=== PATIENT | female | born 1965 | race Two or more races ===

== ENCOUNTER 2019-05-06 08:09 | Emergency (ER) | payer BC ==
[2019-05-06] MEDS ORDERED: LORazepam 2 MG/ML SDV ONE (08:14)
[2019-05-06] MEDS ORDERED: Ondansetron 4 MG/2 ML SDV ONE (08:14)
[2019-05-06] MEDS ORDERED: Alum Hydrox/Mag Hydrox/Simeth 30 ML, Lidocaine 2% 15 ML PO ONE ×2 (08:23)
[2019-05-06] MEDS ORDERED: LORazepam 2 MG/ML SDV IVPUSH STA (08:24)
[2019-05-06] MEDS ORDERED: Ondansetron 4 MG/2 ML SDV IVPUSH STA (08:24)
--- NOTE | 2019-05-06 08:30 | EDM.PDOC ---
ED HPI GENERAL MEDICAL PROBLEM - General Chief Complaint: Chest Pain Stated Complaint: [facility] Time Seen by Provider: 05/06/19 08:10 - History of Present Illness INITIAL COMMENTS - FREE TEXT/NARRATIVE: 53-year-old female presents the emergency room with chest pain. The patient is in quite a bit of distress when she gets her very anxious and difficult to get questions answered it took Ativan and Zofran before we could even get a monitor hooked up to her. Now she is answering questions appropriately there is a little bit of a language barrier. Patient has had a prior cardiac history of mitral valve prolapse she does not have a history of a pacemaker as previously reported. She has had thoracotomy for mitral valve repair. Besides this she denies any other medical problems however the patient was feels to have some surgical procedure done here on the of this last month but I cannot find any documentation of this. Patient was drinking beer last night but did not denies drinking in excess. She denies any illicit drugs. - Related Data Allergies Allergy/AdvReac Type Severity Reaction Status Date / Time aspirin Allergy Cannot Verified 05/06/19 08:39 Remember contrast dye. Allergy Swelling Uncoded 05/06/19 10:16 Home Meds: Home Meds Acetaminophen/HYDROcodone [[place] 325-5 MG] 1 - 2 tab PO Q6H PRN #20 tablet 05/05 [Rx] Ondansetron [Zofran ODT] 4 mg PO Q4H PRN #12 tab.dis 05/06/19 [Rx] Potassium Chloride [Klor-Con 10] 10 meq PO Q12H #6 tab.er 05/06/19 [Rx] ED ROS GENERAL - Review of Systems Review Of Systems: See Below Constitutional: Reports: No Symptoms HEENT: Reports: No Symptoms Respiratory: Reports: No Symptoms Cardiovascular: Reports: Chest Pain GI/Abdominal: Reports: Abdominal Pain, Nausea, Vomiting. Denies: Constipation, Diarrhea : Reports: No Symptoms Musculoskeletal: Reports: No Symptoms ED EXAM, GENERAL - Physical Exam Exam: See Below Exam Limited By: No Limitations General Appearance: Anxious, Severe Distress Head: Atraumatic, Normocephalic Neck: Normal Inspection, Supple, Non-Tender, Full Range of Motion. No: Lymphadenopathy (L), Lymphadenopathy (R) Respiratory/Chest: No Respiratory Distress, Lungs Clear, Normal Breath Sounds Cardiovascular: Regular Rate, Rhythm, No Edema, No Murmur GI/Abdominal: Normal Bowel Sounds, Soft, Other (She has significant epigastric discomfort no guarding rigidity or rebound noted) Back Exam: Normal Inspection. No: CVA Tenderness (L), CVA Tenderness (R) Psychiatric: Anxious EKG INTERPRETATION EKG Date: 05/06/19 Rhythm: Other (Sinus dysrhythmia) [place]: LAD-Left [place] Deviation P-Wave: Present QRS: Other (Low voltage throughout) ST-T: Normal QT: Normal Comparison: NA - No Prior EKG EKG Interpretation Comments: Abnormal EKG Course - Vital Signs Last Recorded V/S: Last Vital Signs Temp 36.3 C 05/06/19 08:10 Pulse 60 05/06/19 08:10 Resp 20 05/06/19 08:10 BP 179/97 H 05/06/19 08:10 Pulse Ox 98 05/06/19 08:10 - Orders/Labs/Meds Orders: Active Orders 24 hr Category Date Time Status EKG Documentation Completion [RC] STAT Care 05/06/19 08:17 Active Lactated Ringers [Ringers, Lactated] 1,000 ml Med 05/06/19 09:45 Active IV ASDIRECTED Sodium Chloride 0.9% [Saline Flush] Med 05/06/19 11:10 Active 10 ml FLUSH ONETIME PRN Medication Orders Lactated Ringer's (Ringers, Lactated) 1,000 mls @ 125 mls/hr IV ASDIRECTED GRADY Last Admin: 05/06/19 10:38 Dose: 125 mls/hr Sodium Chloride (Saline Flush) 10 ml FLUSH ONETIME PRN PRN Reason: IV Flush Last Admin: 05/06/19 11:12 Dose: 10 ml Labs: Laboratory Tests 05/06/19 05/06/19 05/06/19 Range/Units 08:28 08:28 08:28 WBC 7.52 (3.98-10.04) K/mm3 RBC 5.17 (3.98-5.22) M/mm3 Hgb 14.6 (11.2-15.7) gm/dl Hct 45.1 H (34.1-44.9) % MCV 87.2 (79.4-94.8) fl MCH 28.2 (25.6-32.2) pg MCHC 32.4 (32.2-35.5) g/dl RDW Std Deviation 47.2 H (36.4-46.3) fL Plt Count 212 (182-369) K/mm3 MPV 13.1 H (9.4-12.3) fl Neut % (Auto) 74.6 H (34.0-71.1) % Lymph % (Auto) 18.8 L (19.3-51.7) % [place] % (Auto) 5.5 (4.7-12.5) % Eos % (Auto) 0.7 (0.7-5.8) Baso % (Auto) 0.3 (0.1-1.2) % Neut # (Auto) 5.62 (1.56-6.13) K/mm3 Lymph # (Auto) 1.41 (1.18-3.74) K/mm3 [place] # (Auto) 0.41 H (0.24-0.36) K/mm3 Eos # (Auto) 0.05 (0.04-0.36) K/mm3 Baso # (Auto) 0.02 (0.01-0.08) K/mm3 PT 45.0 H (9.7-12.0) SECONDS INR 4.50 APTT 36 H (22-31) SECONDS D-Dimer, Quantitative 0.55 H (0.19-0.50) mg/L Sodium 146 H (136-145) mEq/L Potassium 3.3 L (3.5-5.1) mEq/L Chloride 107 (98-107) mEq/L Carbon Dioxide 23 (21-32) mEq/L Anion Gap 19.3 H (5-15) BUN 5 L (7-18) mg/dL Creatinine 0.8 (0.55-1.02) mg/dL Est Cr Clr Drug Dosing 68.82 mL/min Estimated GFR (MDRD) > 60 (>60) mL/min BUN/Creatinine Ratio 6.3 L (14-18) Glucose 122 H (74-106) mg/dL Calcium 9.3 (8.5-10.1) mg/dL Total Bilirubin 0.8 (0.2-1.0) mg/dL AST 40 H (15-37) U/L ALT 36 (14-59) U/L Alkaline Phosphatase 69 (46-116) U/L Troponin I < 0.017 (0.00-0.056) ng/mL Total Protein 7.5 (6.4-8.2) g/dl Albumin 4.2 (3.4-5.0) g/dl Globulin 3.3 gm/dL Albumin/Globulin Ratio 1.3 (1-2) Urine Color (Yellow) Urine Appearance (Clear) Urine pH (5.0-8.0) Ur Specific [place] (1.005-1.030) Urine Protein (Negative) Urine Glucose (UA) (Negative) Urine Ketones (Negative) Urine Occult Blood (Negative) Urine Nitrite (Negative) Urine Bilirubin (Negative) Urine Urobilinogen (0.2-1.0) Ur Leukocyte Esterase (Negative) Urine RBC (0-5) /hpf Urine WBC (0-5) /hpf Ur Squamous Epith Cells (0-5) /hpf Urine Bacteria (FEW) /hpf Urine Mucus (FEW) /hpf Urine Opiates Screen (PZZAXR=486) Ur Buprenorphine Scrn (CUTOFF=10) Ur Oxycodone Screen (GPW7TX=294) Urine Methadone Screen (CFODCO=138) Ur Propoxyphene Screen (ZPJZEE=101) Ur Barbiturates Screen (ZSBSDL=286) Ur Tricyclics Screen (KRAXFL=103) Ur Phencyclidine Scrn (CUTOFF=25) Ur Amphetamine Screen (OBPRLD=539) U Methamphetamines Scrn (UOZKAO=121) U Benzodiazepines Scrn (PQHOUR=165) U Cocaine Metab Screen (BAXCCE=881) U Marijuana (THC) Screen (CUTOFF=50) Ethyl Alcohol 0.00 (0.00) gm% 05/06/19 05/06/19 Range/Units 10:38 10:38 WBC (3.98-10.04) K/mm3 RBC (3.98-5.22) M/mm3 Hgb (11.2-15.7) gm/dl Hct (34.1-44.9) % MCV (79.4-94.8) fl MCH (25.6-32.2) pg MCHC (32.2-35.5) g/dl RDW Std Deviation (36.4-46.3) fL Plt Count (182-369) K/mm3 MPV (9.4-12.3) fl Neut % (Auto) (34.0-71.1) % Lymph % (Auto) (19.3-51.7) % [place] % (Auto) (4.7-12.5) % Eos % (Auto) (0.7-5.8) Baso % (Auto) (0.1-1.2) % Neut # (Auto) (1.56-6.13) K/mm3 Lymph # (Auto) (1.18-3.74) K/mm3 [place] # (Auto) (0.24-0.36) K/mm3 Eos # (Auto) (0.04-0.36) K/mm3 Baso # (Auto) (0.01-0.08) K/mm3 PT (9.7-12.0) SECONDS INR APTT (22-31) SECONDS D-Dimer, Quantitative (0.19-0.50) mg/L Sodium (136-145) mEq/L Potassium (3.5-5.1) mEq/L Chloride (98-107) mEq/L Carbon Dioxide (21-32) mEq/L Anion Gap (5-15) BUN (7-18) mg/dL Creatinine (0.55-1.02) mg/dL Est Cr Clr Drug Dosing mL/min Estimated GFR (MDRD) (>60) mL/min BUN/Creatinine Ratio (14-18) Glucose (74-106) mg/dL Calcium (8.5-10.1) mg/dL Total Bilirubin (0.2-1.0) mg/dL AST (15-37) U/L ALT (14-59) U/L Alkaline Phosphatase (46-116) U/L Troponin I (0.00-0.056) ng/mL Total Protein (6.4-8.2) g/dl Albumin (3.4-5.0) g/dl Globulin gm/dL Albumin/Globulin Ratio (1-2) Urine Color Yellow (Yellow) Urine Appearance Clear (Clear) Urine pH 6.0 (5.0-8.0) Ur Specific [place] 1.025 (1.005-1.030) Urine Protein 1+ H (Negative) Urine Glucose (UA) Negative (Negative) Urine Ketones 1+ H (Negative) Urine Occult Blood Trace-intact H (Negative) Urine Nitrite Negative (Negative) Urine Bilirubin Negative (Negative) Urine Urobilinogen 0.2 (0.2-1.0) Ur Leukocyte Esterase Negative (Negative) Urine RBC 5-10 H (0-5) /hpf Urine WBC 0-5 (0-5) /hpf Ur Squamous Epith Cells 0-5 (0-5) /hpf Urine Bacteria Few (FEW) /hpf Urine Mucus Few (FEW) /hpf Urine Opiates Screen Negative (LDLKRJ=207) Ur Buprenorphine Scrn Negative (CUTOFF=10) Ur Oxycodone Screen Negative (HJW1NL=393) Urine Methadone Screen Negative (DIXDVI=279) Ur Propoxyphene Screen Negative (BDOBWE=077) Ur Barbiturates Screen Negative (XDFAFH=598) Ur Tricyclics Screen Negative (SDULIR=463) Ur Phencyclidine Scrn Negative (CUTOFF=25) Ur Amphetamine Screen Negative (WHEBEO=437) U Methamphetamines Scrn Negative (LNKCME=522) U Benzodiazepines Scrn Presumptive positive H (TNDCAT=696) U Cocaine Metab Screen Negative (AZSNLF=329) U Marijuana (THC) Screen Presumptive positive H (CUTOFF=50) Ethyl Alcohol (0.00) gm% Meds: Medications Generic Name Dose Route Start Last Admin Trade Name Freq PRN Reason Stop Dose Admin Lactated Ringer's 1,000 mls @ 125 mls/hr 05/06/19 09:45 05/06/19 10:38 Ringers, Lactated IV 125 mls/hr ASDIRECTED GRADY Administration Sodium Chloride 10 ml 05/06/19 11:10 05/06/19 11:12 Saline Flush FLUSH 10 ml ONETIME PRN Administration IV Flush Discontinued Medications Generic Name Dose Route Start Last Admin Trade Name Freq PRN Reason Stop Dose Admin Hydrocodone Bitart/Acetaminophen 1 tab 05/06/19 14:34 05/06/19 14:39 [place] 325-5 Mg PO 05/06/19 14:35 1 tab ONETIME STA Administration Al Hydroxide/Mg Hydroxide 30 0 ml 05/06/19 08:23 05/06/19 08:28 ml/ Lidocaine HCl 15 ml PO 05/06/19 08:24 45 ml ONETIME ONE Administration Diphenhydramine HCl 50 mg 05/06/19 09:41 05/06/19 09:57 Benadryl IVPUSH 05/06/19 09:42 50 mg ONETIME ONE Administration Famotidine 40 mg 05/06/19 09:41 05/06/19 10:04 Pepcid IVPUSH 05/06/19 09:42 40 mg ONETIME ONE Administration Fentanyl 100 mcg 05/06/19 09:43 05/06/19 09:55 Sublimaze IVPUSH 05/06/19 09:44 50 mcg ONETIME ONE Administration Hydromorphone HCl 0.5 mg 05/06/19 12:23 05/06/19 12:42 Dilaudid IVPUSH 05/06/19 12:24 0.5 mg ONETIME ONE Administration Lactated Ringer's 500 mls @ 999 mls/hr 05/06/19 09:36 05/06/19 09:54 Ringers, Lactated IV 05/06/19 10:06 999 mls/hr .BOLUS ONE Administration Sodium Chloride 100 mls @ 4 mls/sec 05/06/19 10:56 05/06/19 11:11 Normal Saline IV 05/06/19 10:57 4 mls/sec ONETIME ONE Administration Sodium Chloride 100 mls @ 4 mls/sec 05/06/19 11:10 Normal Saline IV 05/06/19 11:11 ONETIME ONE Iopamidol 100 ml 05/06/19 10:56 05/06/19 11:11 Isovue-370 (76%) IVPUSH 05/06/19 10:57 100 ml ONETIME ONE Administration Iopamidol 100 ml 05/06/19 11:10 Isovue-370 (76%) IVPUSH 05/06/19 11:11 ONETIME ONE Lorazepam Confirm 05/06/19 08:14 05/06/19 08:27 Ativan Administered 05/06/19 08:15 Not Given Dose 2 mg .ROUTE .STK-MED ONE Lorazepam 1 mg 05/06/19 08:24 05/06/19 08:15 Ativan IVPUSH 05/06/19 08:25 1 mg ONETIME STA Administration Methylprednisolone Sodium Succinate 125 mg 05/06/19 09:41 05/06/19 10:07 Solu-Medrol IVPUSH 05/06/19 09:42 125 mg ONETIME ONE Administration Ondansetron HCl Confirm 05/06/19 08:14 05/06/19 08:27 Zofran Administered 05/06/19 08:15 Not Given Dose 4 mg .ROUTE .STK-MED ONE Ondansetron HCl 4 mg 05/06/19 08:24 05/06/19 08:14 Zofran IVPUSH 05/06/19 08:25 4 mg ONETIME STA Administration Ondansetron HCl 4 mg 05/06/19 08:37 05/06/19 08:43 Zofran IVPUSH 05/06/19 08:38 4 mg ONETIME ONE Administration Pantoprazole Sodium 40 mg 05/06/19 09:43 05/06/19 09:58 Protonix Iv IVPUSH 05/06/19 09:44 40 mg ONETIME ONE Administration Sucralfate 1 gm 05/06/19 09:43 05/06/19 10:09 Carafate PO 05/06/19 09:44 Not Given ONETIME ONE - Re-Assessments/Exams Free Text/Narrative Re-Assessment/Exam: 05/06/19 08:28 She presents the emergency room quite a bit of stress and anxious. She will not hold still for monitoring. And we cannot get an EKG. I did discuss this with the patient she calmed down a little bit we gave her some Zofran and Ativan which seems to have helped quite a bit. She has normal bowel sounds and a significant amount of epigastric pain we will try a GI cocktail 05/06/19 09:44 Patient's pain is returning we will give her some fentanyl try some Carafate and Protonix. Patient's d-dimer came back elevated we will need to check a CTA however the patient has had a reaction to IV contrast in the past she had itching and a rash sounds like hives. This was treated with Benadryl in the past. Patient be pretreated with Solu-Medrol Pepcid and Benadryl. I discussed the risks of the procedure with the patient and she agrees to proceed. 05/06/19 14:39 CTA is unremarkable. The patient's daughter is here and is a good data center solutions architect the patient is having right upper quadrant as well as epigastric discomfort. Her white count is not elevated her liver enzymes are not elevated. According to the patient's daughter the patient had 3 large tequila drinks last night and she does smoke. The patient currently is on Coumadin but this is on hold and she is taken the Lovenox as bridge therapy with an upcoming EGD. The patient is taking omeprazole at this time. At this point we will give her some hydrocodone and Zofran have her add Pepcid 20 mg twice daily to her omeprazole. Departure - Departure Time of Disposition: 14:42 Disposition: Admitted As Inpatient 68 Clinical Impression: Upper abdominal pain Prescriptions: Acetaminophen/HYDROcodone [[place] 325-5 MG] 1 - 2 tab PO Q6H PRN #20 tablet PRN Reason: Abdominal Pain Ondansetron [Zofran ODT] 4 mg PO Q4H PRN #12 tab.dis PRN Reason: Nausea/Vomiting Potassium Chloride [Klor-Con 10] 10 meq PO Q12H #6 tab.er Referrals: Mary Vargas MD [Primary Care Provider] - Forms: ED Department Discharge Additional Instructions: Return to the emergency room with any questions problems or worsening symptoms. Take the medications as directed. Start the potassium, or Klor-Con tomorrow. You should be contacted by radiology to schedule a gallbladder ultrasound. Get this done as directed and when you see Dr. Staton tell him this is been ordered Sepsis Event Note - Evaluation Sepsis Screening Result: No Definite Risk - Focused Exam Vital Signs: Vital Signs Temp Pulse Resp BP Pulse Ox 05/06/19 08:10 36.3 C 60 20 179/97 H 98 Date Exam was Performed: 05/06/19 Time Exam was Performed: 14:39 - My Orders Last 24 Hours: My Active Orders 05/06/19 08:17 EKG Documentation Completion [RC] STAT 05/06/19 09:45 Lactated Ringers [Ringers, Lactated] 1,000 ml IV ASDIRECTED 05/06/19 11:10 Sodium Chloride 0.9% [Saline Flush] 10 ml FLUSH ONETIME PRN - Assessment/Plan Last 24 Hours: My Active Orders 05/06/19 08:17 EKG Documentation Completion [RC] STAT 05/06/19 09:45 Lactated Ringers [Ringers, Lactated] 1,000 ml IV ASDIRECTED 05/06/19 11:10 Sodium Chloride 0.9% [Saline Flush] 10 ml FLUSH ONETIME PRN
[2019-05-06] MEDS ORDERED: Ondansetron 4 MG/2 ML SDV IVPUSH ONE (08:37)
--- NOTE | 2019-05-06 08:59 | CR ---
Chest: Portable view of the chest was obtained. Comparison: No previous chest x-rays available. Heart size and mediastinum are normal. Lungs are clear with no acute parenchymal change. Previous sternotomy and prosthetic heart valve is noted. Bony structures are grossly intact. Impression: 1. Nothing acute is appreciated on frontal chest x-ray. Diagnostic code #2 This report was dictated in [place] Standard Time
[2019-05-06] MEDS ORDERED: Lactated Ringers 500 ML IV ONE (09:36)
[2019-05-06] MEDS ORDERED: methylPREDNISolone Sodium Succinate 125 MG/2 ML SDV IVPUSH ONE (09:41)
[2019-05-06] MEDS ORDERED: diphenhydrAMINE 50 MG/ML SDV IVPUSH ONE (09:41)
[2019-05-06] MEDS ORDERED: Famotidine 20 MG/2 ML SDV IVPUSH ONE (09:41)
[2019-05-06] MEDS ORDERED: Pantoprazole 40 MG Vial IVPUSH ONE (09:43)
[2019-05-06] MEDS ORDERED: Sucralfate Suspension 1 GM/10 ML Cup PO ONE (09:43)
[2019-05-06] MEDS ORDERED: fentaNYL 100 MCG/2 ML SDV IVPUSH ONE (09:43)
[2019-05-06] MEDS ORDERED: Lactated Ringers 1,000 ML IV SCH (09:45)
[2019-05-06] MEDS ORDERED: Sodium Chloride 0.9% 100 ML IV ONE ×2 (10:56→11:10)
[2019-05-06] MEDS ORDERED: Iopamidol 755 Mg/ML 100 ML Bottle IVPUSH ONE ×2 (10:56→11:10)
[2019-05-06] MEDS ORDERED: Sodium Chloride 0.9% 10 ML Syringe FLUSH PRN (11:10)
--- NOTE | 2019-05-06 11:47 | CT ---
CT chest Technique: Multiple axial sections through the chest were obtained. Intravenous contrast was utilized. Study has been performed as a pulmonary angiogram protocol. Comparison: Prior chest x-ray performed earlier on the same day (8:20 AM). Findings: Pulmonary arteries are moderately well opacified. No filling defects are seen to indicate pulmonary embolism. No pericardial thickening is noted. Prosthetic mitral valve is present. Small hiatal hernia is present. Surgical clips are noted from prior cholecystectomy. No pericardial thickening is seen. Mild coronary artery calcification is noted. Aorta shows atherosclerotic calcification without aneurysm. Mediastinum shows no adenopathy. No axillary adenopathy is seen. No acute osseous finding is seen. There is mild interstitial change along the lateral left chest wall believed to represent mild fibrosis and minimal areas of atelectasis. Minimal linear scarring and atelectasis is seen within the right lung base. No acute appearing parenchymal change is seen. Impression: 1. No findings pulmonary embolism. 2. Prosthetic mitral valve. 3. Mild interstitial change along the lateral left chest wall most likely representing a combination of minimal atelectasis and fibrosis. Minimal linear atelectasis and fibrosis within the right lung base. 4. Other nonacute findings as noted above. Nothing acute is appreciated. Diagnostic code #2 This report was dictated in [place] Standard Time
[2019-05-06] MEDS ORDERED: HYDROmorphone 0.5 MG/0.5 ML Syringe IVPUSH ONE (12:23)
[2019-05-06] MEDS ORDERED: Acetaminophen/HYDROcodone 325-5 MG Tab PO STA (14:34)
== END 2019-05-06 15:00 | disposition home or self-care (01) ==
LOC: JD.ED 08:09
DX: R10.13 Epigastric pain (principal); Z88.8 Allergy status to other drugs, medicaments and biological substances; Z91.041 Radiographic dye allergy status
CPT/HCPCS: 36415; 71045; 71275; 80053; 80306; 80307; 81001; 84484; 85025; 85379; 85610; 85730; 93005; 96361; 96374; 96375; 99285; A9270; C9113; J1170; J1200; J2060; J2405; J2930; J3010; J3490; J7050; J7120; Q9967; 93010; 99283

== ENCOUNTER 2019-06-02 11:33 | Emergency (ER) | payer BC ==
[2019-06-02] MEDS ORDERED: Alum Hydrox/Mag Hydrox/Simeth 30 ML, Lidocaine 2% 15 ML PO ONE ×2 (12:43)
[2019-06-02] MEDS ORDERED: Acetaminophen 325 MG Tab PO ONE (12:46)
--- NOTE | 2019-06-02 12:51 | EDM.PDOC ---
ED HPI GENERAL MEDICAL PROBLEM - General Chief Complaint: Abdominal Pain Stated Complaint: UPPER ABD PAIN Time Seen by Provider: 06/02/19 11:51 Source of Information: Reports: Patient History Limitations: Reports: No Limitations - History of Present Illness INITIAL COMMENTS - FREE TEXT/NARRATIVE: Patient is a 53-year-old female brought in by her with complaints of upper abdominal pain, left-sided chest wall pain, and cough. Patient has had the abdominal pain for approximately the last 6 months. She was seen at [facility] in [place] 1 month ago and had an upper endoscopy done. She was told at that time that her hiatal hernia repair that was done 9 years ago had failed and that she also has esophageal stricture. states that a balloon dilation was done of the esophageal stricture stricture, however since that time her symptoms seem to be getting worse. She is unable to eat without pain she does occasionally vomit. She has been taking Carafate and omeprazole but continues to have symptoms. Patient does not have a follow-up appointment or any arrangements to have her hiatal hernia repaired. From the patient and her 's report, there was an issue during her stay at [facility] where the patient went out to smoke and for my understanding she left AMA after that because she did not feel like anything was being done. She did fall on her right side approximately 1 week ago. Since that time she has had pain on her left chest wall which she feels is from the impact of the fall on the right side. It is tender to palpation and painful when she wears a bra. She is also had a productive cough for about a week. Has not had any fever, chills, or nasal congestion. Upper Abdomen Pain Score (Numeric/FACES): 9 - Related Data Allergies Allergy/AdvReac Type Severity Reaction Status Date / Time aspirin Allergy Cannot Verified 06/02/19 12:15 Remember contrast dye. 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 Denies: Fever, Chills HEENT: Reports: No Symptoms ED EXAM, GI/ABD - Physical Exam Exam: See Below Exam Limited By: No Limitations General Appearance: Alert, WD/WN, Mild Distress Throat/Mouth: Normal Inspection, Normal Lips, Normal Teeth, Normal Gums, Normal Oropharynx, Normal Voice, No Airway Compromise Respiratory/Chest: No Respiratory Distress, Lungs Clear, Normal Breath Sounds, No Accessory Muscle Use, Other (tenderness throughout the left anterior and posterior chest wall. No ecchymosis or lesions noted.) Cardiovascular: Normal Peripheral Pulses, Regular Rate, Rhythm, No Edema, No Gallop, No JVD, No Murmur, No Rub GI/Abdominal Exam: Normal Bowel Sounds, Soft, No Organomegaly, No Distention, No Abnormal Bruit, No Mass, Pelvis Stable, Tender (epigastric) Neurological: Alert, Oriented, CN II-XII Intact, Normal Cognition, Normal Gait, Normal Reflexes, No Motor/Sensory Deficits Psychiatric: Normal Affect, Normal Mood Skin Exam: Warm, Dry, Intact, Normal Color, No Rash Course - Vital Signs Last Recorded V/S: Last Vital Signs Temp 98.2 F 06/02/19 12:03 Pulse 70 06/02/19 14:00 Resp 13 06/02/19 12:03 BP 160/86 H 06/02/19 14:00 Pulse Ox 100 06/02/19 14:00 - Orders/Labs/Meds Meds: Medications Discontinued Medications Generic Name Dose Route Start Last Admin Trade Name Daltonq PRN Reason Stop Dose Admin Acetaminophen 975 mg 06/02/19 12:46 06/02/19 12:49 Tylenol PO 06/02/19 12:47 975 mg NOW ONE Administration Al Hydroxide/Mg Hydroxide 30 0 ml 06/02/19 12:43 06/02/19 12:49 ml/ Lidocaine HCl 15 ml PO 06/02/19 12:44 45 ml ONETIME ONE Administration - Re-Assessments/Exams Free Text/Narrative Re-Assessment/Exam: 06/02/19 13:21 Chest x-ray was negative for any infiltrates or rib fractures. I called and spoke with Dr. Marin, gastroenterology, at [facility]. He reviewed the patient's chart stated that her esophagus was dilated to 18 mm. He feels that she is likely having esophageal spasms but that further testing should be scheduled in [place] on an outpatient patient basis. They entered a referral so that the patient can call Tuesday morning to get an appointment set up. He stated that the only thing that will actually resolve her pain is further interventions. He did however recommend that we start on amitriptyline 10 mg at bedtime for functional GI disorder. I send her with an albuterol inhaler and Fulda for the chest wall pain. She and her are in agreement with the plan and will call Tuesday to schedule an appointment with GI in [place]. Discharge instructions as documented. Departure - Departure Time of Disposition: 13:32 Disposition: Home, Self-Care 01 Condition: Fair Clinical Impression: Upper abdominal pain, Viral respiratory illness - Discharge Information *PRESCRIPTION DRUG MONITORING PROGRAM REVIEWED*: No *COPY OF PRESCRIPTION DRUG MONITORING REPORT IN PATIENT RONALD: No Prescriptions: Acetaminophen/HYDROcodone [F[place]da 325-5 MG] 1 tab PO Q4H PRN #10 tablet PRN Reason: Pain Albuterol [Ventolin HFA] 2 puff .XX Q4H PRN #1 inhaler PRN Reason: Cough Amitriptyline [Elavil] 10 mg PO BEDTIME #30 tab Instructions: Viral Respiratory Infection, [id number], Abdominal Pain, Adult , [id number] Referrals: Mary Vargas MD [Primary Care Provider] - Forms: ED Department Discharge Additional Instructions: You were seen in the emergency department today for chronic upper abdominal pain , cough, and left-sided chest wall pain. A chest x-ray was done in the ER which did not show any rib fractures or pneumonia. I did call and speak with the nuclear equipment design engineer at [facility] in [place]. He recommended that we start you on amitriptyline at bedtime. He also recommended that you call Tuesday morning to schedule an appointment for further evaluation to be done with regards to your upper abdominal pain. A prescription for amitriptyline, albuterol inhaler, and Fulda for pain has been sent to [facility]. Pick these medications up and take them as prescribed. Recommend that you avoid any spicy or acidic foods as this will likely make your pain worse. You experience any worsening symptoms, please do not hesitate to return to the emergency department. Sepsis Event Note - Evaluation Sepsis Screening Result: No Definite Risk - Focused Exam Vital Signs: Vital Signs Temp Pulse Resp BP Pulse Ox 06/02/19 14:00 70 160/86 H 100 06/02/19 12:03 98.2 F 70 13 125/94 H 100 Date Exam was Performed: 06/02/19 Time Exam was Performed: 21:26
--- NOTE | 2019-06-02 13:18 | CR ---
Chest: PA and lateral views of the chest were obtained. Comparison: Prior chest x-ray of 05/06/[address] also performed on 05/06/19. Heart size and mediastinum are normal. 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 Lungs show no acute parenchymal change. Bony structures appear without acute finding. Surgical clips are seen within the upper abdomen from prior cholecystectomy. Impression: 1. Findings as noted above. Nothing acute is appreciated. Diagnostic code #2 Study was dictated in MDT
== END 2019-06-02 14:01 | disposition home or self-care (01) ==
LOC: JD.ED 11:33
DX: B34.9 Viral infection, unspecified (principal); R10.10 Upper abdominal pain, unspecified; E78.00 Pure hypercholesterolemia, unspecified; I10 Essential (primary) hypertension; F17.210 Nicotine dependence, cigarettes, uncomplicated; Z88.6 Allergy status to analgesic agent; Z91.041 Radiographic dye allergy status; Z79.01 Long term (current) use of anticoagulants
CPT/HCPCS: 71046; 99284; A9270; 99283

== ENCOUNTER 2020-10-20 09:53 | Emergency (ER) | payer BC ==
[2020-10-20] MEDS ORDERED: Ondansetron 4 MG/2 ML SDV IVPUSH ONE (10:21)
[2020-10-20] MEDS ORDERED: Sodium Chloride 0.9% 10 ML Syringe FLUSH PRN (10:21)
[2020-10-20] MEDS ORDERED: HYDROmorphone 1 MG/ML Syringe IVPUSH ONE ×2 (10:23→12:22)
[2020-10-20] MEDS ORDERED: Sodium Chloride 0.9% 1,000 ML IV SCH (10:30)
--- NOTE | 2020-10-20 11:48 | EDM.PDOC ---
ED HPI GENERAL MEDICAL PROBLEM - General Chief Complaint: Skin Complaint Stated Complaint: RASHES OVER BODY COVID EXPOSED Time Seen by Provider: 10/20/20 10:05 Source of Information: Reports: Patient History Limitations: Reports: No Limitations - History of Present Illness INITIAL COMMENTS - FREE TEXT/NARRATIVE: The patient presents with right foot pain and rash, fever, chills, body aches, nausea, vomiting and slight cough. She has a large red spot to the bottom of her right foot. She does not remember stepping on anything or hurting her foot. Her is currently hospitalized for COVID 19. She has a history of mechanical heart valve replacement a few years ago. She is on coumadin. She is worried she may have COVID. Onset: Gradual Duration: Day(s): Location: Reports: Lower Extremity, Right (foot) Quality: Reports: Sharp Severity: Severe Improves with: Reports: None Worsens with: Reports: None Associated Symptoms: Reports: Cough, Fever/Chills, Nausea/Vomiting, Shortness of Breath. Denies: Chest Pain Right Foot Pain Score (Numeric/FACES): 10 - Related Data Allergies Allergy/AdvReac Type Severity Reaction Status Date / Time aspirin Allergy Severe Rash Verified 10/20/20 10:06 ibuprofen Allergy Severe Rash Verified 10/20/20 10:06 contrast dye. 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: Hematologic History: Reports: Anticoagulation Therapy - Past Surgical History Cardiovascular Surgical History: Reports: Valve Replacement Other Cardiovascular Surgeries/Procedures: mitral valve GI Surgical History: Reports: Appendectomy, Cholecystectomy, EGD Social & Family History - Tobacco Use Tobacco Use Status *Q: Current Every Day Tobacco User Years of Tobacco use: 25 Packs/Tins Daily: 0.2 - Caffeine Use Caffeine Use: Reports: Coffee - Recreational Drug Use Recreational Drug Use: No ED ROS GENERAL - Review of Systems Review Of Systems: See Below Constitutional: Reports: Fever, Chills, Malaise, Weakness, Fatigue HEENT: Reports: No Symptoms Respiratory: Reports: Shortness of Breath, Cough Cardiovascular: Reports: No Symptoms Endocrine: Reports: No Symptoms GI/Abdominal: Reports: Nausea, Vomiting. Denies: Abdominal Pain Musculoskeletal: Reports: Other (right foot pain) ED EXAM, SKIN/RASH Exam: See Below Exam Limited By: No Limitations General Appearance: Alert, No Apparent Distress Ears: Normal External Exam Nose: Normal Inspection Head: Atraumatic, Normocephalic Neck: Normal Inspection Respiratory/Chest: No Respiratory Distress, Lungs Clear, Normal Breath Sounds Cardiovascular: Regular Rate, Rhythm, No Edema, No Murmur GI/Abdominal: Soft, Non-Tender, No Organomegaly, No Mass Back Exam: Normal Inspection Extremities: Other (Erythema and pain upon palpation to the right foot on the mid sole of the foot. Some mild areas of erythema to the left foot) Neurological: Alert, Oriented, No Motor/Sensory Deficits Course - Vital Signs Last Recorded V/S: Last Vital Signs Temp 97.9 F 10/20/20 10:02 Pulse 67 10/20/20 10:02 Resp 16 10/20/20 10:02 BP 152/89 H 10/20/20 10:02 Pulse Ox 97 10/20/20 10:02 - Orders/Labs/Meds Orders: Active Orders 24 hr Category Date Time Status Cardiac Monitoring [RC] . DIRECTED Care 10/20/20 10:21 Active Peripheral IV Care [RC] . DIRECTED Care 10/20/20 10:21 Active Vital Signs [RC] Q15M Care 10/20/20 13:12 Active BLOOD CULTURE [MREF] Stat Lab 10/20/20 10:49 Received BLOOD CULTURE [MREF] Stat Lab 10/20/20 10:56 Received EPINEPHrine [Adrenalin] Med 10/20/20 13:12 Active 0.3 mg IM ONETIME PRN Famotidine [Pepcid] Med 10/20/20 13:12 Active 20 mg IVPUSH ONETIME PRN Sodium Chloride 0.9% [Normal Saline] 1,000 ml Med 10/20/20 10:30 Active IV .BOLUS Sodium Chloride 0.9% [Saline Flush] Med 10/20/20 10:21 Active 10 ml FLUSH ASDIRECTED PRN Sodium Chloride 0.9% [Saline Flush] Med 10/20/20 13:15 Active 30 ml FLUSH ASDIRECTED diphenhydrAMINE [Benadryl] Med 10/20/20 13:12 Active 50 mg IVPUSH ONETIME PRN methylPREDNISolone Sod Succ [Solu-MEDROL] Med 10/20/20 13:12 Active 125 mg IVPUSH ONETIME PRN ED Antiemetic Medication Reflex [OM.PC] Stat Ot 10/20/20 10:21 Ordered Peripheral IV Insertion Adult [OM.PC] Stat Ot 10/20/20 10:21 Ordered Medication Orders Diphenhydramine HCl (Diphenhydramine 50 Mg/Ml Sdv) 50 mg IVPUSH ONETIME PRN PRN Reason: hypersensitivity reaction Epinephrine HCl (Epinephrine 1 Mg/Ml Sdv) 0.3 mg IM ONETIME PRN PRN Reason: hypersensitivity reaction Famotidine (Famotidine 20 Mg/2 Ml Sdv) 20 mg IVPUSH ONETIME PRN PRN Reason: hypersensitivity reaction Sodium Chloride (Normal Saline) 1,000 mls @ 1,000 mls/hr IV .BOLUS [facility] Last Admin: 10/20/20 11:28 Dose: 1,000 mls/hr Documented by: JEMMA Methylprednisolone Sodium Succinate (Methylprednisolone Sodium Succinate 125 Mg/2 Ml Sdv) 125 mg IVPUSH ONETIME PRN PRN Reason: hypersensitivity reaction Sodium Chloride (Sodium Chloride 0.9% 10 Ml Syringe) 10 ml FLUSH ASDIRECTED PRN PRN Reason: Keep Vein Open Last Admin: 10/20/20 11:32 Dose: 10 ml Documented by: JEMMA Sodium Chloride (Sodium Chloride 0.9% 10 Ml Syringe) 30 ml FLUSH ASDIRECTED [facility] Labs: Laboratory Tests 10/20/20 10/20/20 10/20/20 Range/Units 10:49 10:49 10:49 WBC 5.43 (3.98-10.04) K/mm3 RBC 4.97 (3.98-5.22) M/mm3 Hgb 14.4 (11.2-15.7) gm/dl Hct 43.9 (34.1-44.9) % MCV 88.3 (79.4-94.8) fl MCH 29.0 (25.6-32.2) pg MCHC 32.8 (32.2-35.5) g/dl RDW Std Deviation 45.8 (36.4-46.3) fL Plt Count 238 (182-369) K/mm3 MPV 11.8 (9.4-12.3) fl Neut % (Auto) 58.1 (34.0-71.1) % Lymph % (Auto) 31.5 (19.3-51.7) % Miner % (Auto) 8.3 (4.7-12.5) % Eos % (Auto) 1.1 (0.7-5.8) Baso % (Auto) 0.6 (0.1-1.2) % Neut # (Auto) 3.16 (1.56-6.13) K/mm3 Lymph # (Auto) 1.71 (1.18-3.74) K/mm3 Miner # (Auto) 0.45 H (0.24-0.36) K/mm3 Eos # (Auto) 0.06 (0.04-0.36) K/mm3 Baso # (Auto) 0.03 (0.01-0.08) K/mm3 PT 46.5 H (9.7-12.0) SECONDS INR 4.48 APTT 58.4 H (21.7-31.4) SECONDS Sodium 143 (136-145) mEq/L Potassium 4.2 (3.5-5.1) mEq/L Chloride 108 H (98-107) mEq/L Carbon Dioxide 25 (21-32) mEq/L Anion Gap 14.2 (5-15) BUN 11 (7-18) mg/dL Creatinine 0.6 (0.55-1.02) mg/dL Est Cr Clr Drug Dosing 82.76 mL/min Estimated GFR (MDRD) > 60 (>60) mL/min BUN/Creatinine Ratio 18.3 H (14-18) Glucose 92 (70-99) mg/dL Lactic Acid (0.4-2.0) mmol/L Calcium 8.4 L (8.5-10.1) mg/dL Total Bilirubin 0.5 (0.2-1.0) mg/dL AST 21 (15-37) U/L ALT 30 (14-59) U/L Alkaline Phosphatase 80 (46-116) U/L C-Reactive Protein 2.3 H* (<1.0) mg/dL Total Protein 7.0 (6.4-8.2) g/dl Albumin 3.6 (3.4-5.0) g/dl Globulin 3.4 gm/dL Albumin/Globulin Ratio 1.1 (1-2) SARS-CoV-2 RNA (TANGELA) (NEGATIVE) 10/20/20 10/20/20 Range/Units 10:49 11:46 WBC (3.98-10.04) K/mm3 RBC (3.98-5.22) M/mm3 Hgb (11.2-15.7) gm/dl Hct (34.1-44.9) % MCV (79.4-94.8) fl MCH (25.6-32.2) pg MCHC (32.2-35.5) g/dl RDW Std Deviation (36.4-46.3) fL Plt Count (182-369) K/mm3 MPV (9.4-12.3) fl Neut % (Auto) (34.0-71.1) % Lymph % (Auto) (19.3-51.7) % Miner % (Auto) (4.7-12.5) % Eos % (Auto) (0.7-5.8) Baso % (Auto) (0.1-1.2) % Neut # (Auto) (1.56-6.13) K/mm3 Lymph # (Auto) (1.18-3.74) K/mm3 Miner # (Auto) (0.24-0.36) K/mm3 Eos # (Auto) (0.04-0.36) K/mm3 Baso # (Auto) (0.01-0.08) K/mm3 PT (9.7-12.0) SECONDS INR APTT (21.7-31.4) SECONDS Sodium (136-145) mEq/L Potassium (3.5-5.1) mEq/L Chloride (98-107) mEq/L Carbon Dioxide (21-32) mEq/L Anion Gap (5-15) BUN (7-18) mg/dL Creatinine (0.55-1.02) mg/dL Est Cr Clr Drug Dosing mL/min Estimated GFR (MDRD) (>60) mL/min BUN/Creatinine Ratio (14-18) Glucose (70-99) mg/dL Lactic Acid 0.8 (0.4-2.0) mmol/L Calcium (8.5-10.1) mg/dL Total Bilirubin (0.2-1.0) mg/dL AST (15-37) U/L ALT (14-59) U/L Alkaline Phosphatase (46-116) U/L C-Reactive Protein (<1.0) mg/dL Total Protein (6.4-8.2) g/dl Albumin (3.4-5.0) g/dl Globulin gm/dL Albumin/Globulin Ratio (1-2) SARS-CoV-2 RNA (TANGELA) Positive H (NEGATIVE) Meds: Medications Generic Name Dose Route Start Last Admin Trade Name Freq PRN Reason Stop Dose Admin Diphenhydramine HCl 50 mg 10/20/20 13:12 Diphenhydramine 50 Mg/Ml Sdv IVPUSH ONETIME PRN hypersensitivity reaction Epinephrine HCl 0.3 mg 10/20/20 13:12 Epinephrine 1 Mg/Ml Sdv IM ONETIME PRN hypersensitivity reaction Famotidine 20 mg 10/20/20 13:12 Famotidine 20 Mg/2 Ml Sdv IVPUSH ONETIME PRN hypersensitivity reaction Sodium Chloride 1,000 mls @ 1,000 mls/hr 10/20/20 10:30 10/20/20 11:28 Normal Saline IV 1,000 mls/hr .BOLUS GRADY Administration Methylprednisolone Sodium Succinate 125 mg 10/20/20 13:12 Methylprednisolone Sodium Succinate 125 Mg/2 Ml Sdv IVPUSH ONETIME PRN hypersensitivity reaction Sodium Chloride 10 ml 10/20/20 10:21 10/20/20 11:32 Sodium Chloride 0.9% 10 Ml Syringe FLUSH 10 ml ASDIRECTED PRN Administration Keep Vein Open Sodium Chloride 30 ml 10/20/20 13:15 Sodium Chloride 0.9% 10 Ml Syringe FLUSH ASDIRECTED GRADY Discontinued Medications Generic Name Dose Route Start Last Admin Trade Name Freq PRN Reason Stop Dose Admin Hydromorphone HCl 1 mg 10/20/20 10:23 10/20/20 11:33 Hydromorphone 1 Mg/Ml Syringe IVPUSH 10/20/20 10:24 1 mg ONETIME ONE Administration Hydromorphone HCl 1 mg 10/20/20 12:22 10/20/20 12:30 Hydromorphone 1 Mg/Ml Syringe IVPUSH 10/20/20 12:23 1 mg ONETIME ONE Administration CASIRIVIMAB/IMDEVIMAB 10 ml/ 110 mls @ 220 mls/hr 10/20/20 13:12 10/20/20 14:03 Sodium Chloride IV 10/20/20 13:41 220 mls/hr ONETIME ONE Administration Metoclopramide HCl 10 mg 10/20/20 13:19 10/20/20 13:56 Metoclopramide 10 Mg/2 Ml Sdv IVPUSH 10/20/20 13:20 10 mg ONETIME ONE Administration Ondansetron HCl 4 mg 10/20/20 10:21 10/20/20 11:33 Ondansetron 4 Mg/2 Ml Sdv IVPUSH 10/20/20 10:22 4 mg ONETIME ONE Administration - Re-Assessments/Exams Free Text/Narrative Re-Assessment/Exam: 10/20/20 11:49 I ordered an IV NS 1L bolus, zofran 4mg IV, labs, CXR and COVID 19 test. Her CXR looks good. Her CBC is negative. Her INR was elevated at 4.48. Her CMP looks good. Her CRP is elevated at 2.3. 10/20/20 14:13 She is COVID 19 positive. I have ordered the REGEN-COV. She has a mechanical heart valve. I feel she meets criteria for that. 10/20/20 14:16 I will discharge her home. She does have COVID foot. Departure - Departure Time of Disposition: 14:20 Disposition: Home, Self-Care 01 Condition: Good Clinical Impression: COVID-19, Rash associated with COVID-19 - Discharge Information *PRESCRIPTION DRUG MONITORING PROGRAM REVIEWED*: Not Applicable *COPY OF PRESCRIPTION DRUG MONITORING REPORT IN PATIENT RONALD: Not Applicable Prescriptions: dexAMETHasone [Dexamethasone] 6 mg PO DAILY #9 tab Ondansetron [Zofran ODT] 4 mg PO Q6H PRN #20 tab.dis PRN Reason: Nausea\vomiting Referrals: Mary Vargas ALARM FIELD TECHNICIAN [Primary Care Provider] - 2 Days Forms: ED Department Discharge Additional Instructions: Take the dexamethasone 1 1/2 pills daily for 5 days. Drink plenty of fluids. Take the zofran every 6 hours as needed for nausea and vomiting. Have your INR checked in 2 days. The dexamethasone cane affect the coumadin you are on. Please return if you are worse. Sepsis Event Note (ED) - Evaluation Sepsis Screening Result: No Definite Risk - Focused Exam Vital Signs: Vital Signs Temp Pulse Resp BP Pulse Ox 10/20/20 10:02 97.9 F 67 16 152/89 H 97 - My Orders Last 24 Hours: My Active Orders 10/20/20 10:21 Cardiac Monitoring [RC] . DIRECTED Peripheral IV Care [RC] . DIRECTED Sodium Chloride 0.9% [Saline Flush] 10 ml FLUSH ASDIRECTED PRN ED Antiemetic Medication Reflex [OM.PC] Stat Peripheral IV Insertion Adult [OM.PC] Stat 10/20/20 10:30 Sodium Chloride 0.9% [Normal Saline] 1,000 ml IV .BOLUS 10/20/20 10:49 BLOOD CULTURE [MREF] Stat 10/20/20 10:56 BLOOD CULTURE [MREF] Stat 10/20/20 13:12 Vital Signs [RC] Q15M EPINEPHrine [Adrenalin] 0.3 mg IM ONETIME PRN Famotidine [Pepcid] 20 mg IVPUSH ONETIME PRN diphenhydrAMINE [Benadryl] 50 mg IVPUSH ONETIME PRN methylPREDNISolone Sod Succ [Solu-MEDROL] 125 mg IVPUSH ONETIME PRN 10/20/20 13:15 Sodium Chloride 0.9% [Saline Flush] 30 ml FLUSH ASDIRECTED - Assessment/Plan Last 24 Hours: My Active Orders 10/20/20 10:21 Cardiac Monitoring [RC] . DIRECTED Peripheral IV Care [RC] . DIRECTED Sodium Chloride 0.9% [Saline Flush] 10 ml FLUSH ASDIRECTED PRN ED Antiemetic Medication Reflex [OM.PC] Stat Peripheral IV Insertion Adult [OM.PC] Stat 10/20/20 10:30 Sodium Chloride 0.9% [Normal Saline] 1,000 ml IV .BOLUS 10/20/20 10:49 BLOOD CULTURE [MREF] Stat 10/20/20 10:56 BLOOD CULTURE [MREF] Stat 10/20/20 13:12 Vital Signs [RC] Q15M EPINEPHrine [Adrenalin] 0.3 mg IM ONETIME PRN Famotidine [Pepcid] 20 mg IVPUSH ONETIME PRN diphenhydrAMINE [Benadryl] 50 mg IVPUSH ONETIME PRN methylPREDNISolone Sod Succ [Solu-MEDROL] 125 mg IVPUSH ONETIME PRN 10/20/20 13:15 Sodium Chloride 0.9% [Saline Flush] 30 ml FLUSH ASDIRECTED
[2020-10-20] MEDS ORDERED: diphenhydrAMINE 50 MG/ML SDV IVPUSH PRN (13:12)
[2020-10-20] MEDS ORDERED: Famotidine 20 MG/2 ML SDV IVPUSH PRN (13:12)
[2020-10-20] MEDS ORDERED: methylPREDNISolone Sodium Succinate 125 MG/2 ML SDV IVPUSH PRN (13:12)
[2020-10-20] MEDS ORDERED: EPINEPHrine 1 MG/ML SDV IM PRN (13:12)
[2020-10-20] MEDS ORDERED: Sodium Chloride 0.9% 10 ML Syringe FLUSH SCH (13:15)
--- NOTE | 2020-10-20 13:55 | CR ---
Chest: Portable view of the chest was obtained. Comparison: Prior chest x-ray of 06/02/19. Heart size and mediastinum are normal. 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 Lungs show slight tenting of the lateral left hemidiaphragm which is incidental. No acute parenchymal change is seen. Bony structures show nothing acute. Impression: 1. Stable findings as noted above. 2. Nothing acute is appreciated on portable chest x-ray. Diagnostic code #2
[2020-10-20] MEDS: Metoclopramide 10 MG/2 ML SDV IVPUSH ONE (13:56)
--- NOTE | 2020-10-20 13:56 | CR ---
Right foot: 4 views of the right foot were obtained. Comparison: No prior foot study is available. Plantar spur is seen. No acute fracture, dislocation or other bony abnormality is appreciated. Impression: 1. Plantar spur. 2. No acute abnormality is seen on right foot study. Diagnostic code #2
== END 2020-10-20 15:15 | disposition home or self-care (01) ==
LOC: JD.ED 09:53
DX: U07.1 COVID-19 (principal); R21 Rash and other nonspecific skin eruption; E78.00 Pure hypercholesterolemia, unspecified; I10 Essential (primary) hypertension; Z79.01 Long term (current) use of anticoagulants; Z79.899 Other long term (current) drug therapy; Z88.8 Allergy status to other drugs, medicaments and biological substances; Z91.041 Radiographic dye allergy status; Z91.013 Allergy to seafood; Z72.0 Tobacco use; Z20.822 Contact with and (suspected) exposure to COVID-19
CPT/HCPCS: 36415; 71045; 73630; 80053; 83605; 85025; 85610; 85730; 86140; 87040; 87635; 96374; 96375; 96376; 99283; J1170; J2405; J2765; J7030; M0243; Q0243; U0002

== ENCOUNTER 2020-12-02 15:46 | Emergency (ER) | payer BC ==
[2020-12-02] MEDS ORDERED: HYDROmorphone 1 MG/ML Syringe IVPUSH ONE (16:37)
[2020-12-02] MEDS ORDERED: Ondansetron 4 MG/2 ML SDV IVPUSH ONE (16:38)
--- NOTE | 2020-12-02 17:48 | EDM.PDOC ---
ED HPI GENERAL MEDICAL PROBLEM - General Chief Complaint: Respiratory Problem Stated Complaint: COUGH/PREVIOUSLY HAD COVID ONE MONTH AGO Time Seen by Provider: 12/02/20 16:12 Source of Information: Reports: Patient, RN Notes Reviewed History Limitations: Reports: No Limitations - History of Present Illness INITIAL COMMENTS - FREE TEXT/NARRATIVE: Patient is a 54-year-old female presenting to the emergency department with complaints of cough, shortness of breath, and right-sided chest pain. Reports she had Covid 1 month ago and the cough has persisted since that time. Over the last 4 days, she is been having increasing pain in her chest when she coughs or takes a deep breath. Reports that she was diagnosed with Covid pneumonia during her Covid illness. Reports her cough and shortness of breath improved briefly and then returned. States that she feels like she has been warm but denies any documented fever. She has had no vomiting or diarrhea. Right Chest Pain Score (Numeric/FACES): 6 - Related Data Allergies Allergy/AdvReac Type Severity Reaction Status Date / Time aspirin Allergy Intermediate Rash Verified 12/03/20 12:32 Fish Containing Products Allergy Intermediate Rash Verified 12/03/20 12:32 ibuprofen Allergy Intermediate Rash Verified 12/03/20 12:32 Iodinated Contrast Media Allergy Intermediate Rash Verified 12/03/20 12:32 Home Meds: Home Meds Warfarin [Coumadin] 5 mg PO MOWEFR 06/02/19 [History] Warfarin [Coumadin] 7.5 mg PO SUTUTHSA 06/02/19 [History] Omeprazole 20 mg PO DAILY 10/20/20 [History] Ondansetron [Zofran ODT] 4 mg PO Q6H PRN #20 tab.dis 10/20/20 [Rx] dexAMETHasone [Dexamethasone] 6 mg PO DAILY #9 tab 10/20/20 [Rx] Albuterol Sulfate [Albuterol Sulfate Hfa] 2 puff INH Q4H PRN #1 hfa.aer.ad 12/02/20 [Rx] Codeine/Promethazine [Phenergan with Codeine] 5 ml PO Q4HR PRN #100 ml 12/02/20 [Rx] Past Medical History Cardiovascular History: Reports: High Cholesterol, Hypertension Gastrointestinal History: Reports: 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: Hematologic History: Reports: Anticoagulation Therapy - Infectious Disease History Infectious Disease History: Reports: Novel Coronavirus - Past Surgical History Cardiovascular Surgical History: Reports: Valve Replacement Other Cardiovascular Surgeries/Procedures: mitral valve GI Surgical History: Reports: Appendectomy, Cholecystectomy, EGD Social & Family History - Tobacco Use Tobacco Use Status *Q: Current Every Day Tobacco User Years of Tobacco use: 32 Packs/Tins Daily: 0.3 - Caffeine Use Caffeine Use: Reports: Coffee - Recreational Drug Use Recreational Drug Use: No ED ROS GENERAL - Review of Systems Review Of Systems: See Below Constitutional: Reports: No Symptoms HEENT: Reports: No Symptoms Respiratory: Reports: Shortness of Breath, Pleuritic Chest Pain, Cough Cardiovascular: Reports: No Symptoms. Denies: Lightheadedness, Palpitations, Sy ncope Endocrine: Reports: No Symptoms GI/Abdominal: Reports: No Symptoms : Reports: No Symptoms Musculoskeletal: Reports: No Symptoms Skin: Reports: No Symptoms Neurological: Reports: No Symptoms Psychiatric: Reports: No Symptoms Hematologic/Lymphatic: Reports: No Symptoms Immunologic: Reports: No Symptoms ED EXAM, GENERAL - Physical Exam Exam: See Below Exam Limited By: No Limitations General Appearance: Alert, Mild Distress Respiratory/Chest: No Respiratory Distress, Lungs Clear, Normal Breath Sounds, No Accessory Muscle Use, Other (Tenderness to palpation throughout the anterior and posterior chest wall.) Cardiovascular: Normal Peripheral Pulses, Regular Rate, Rhythm, No Edema, No Gallop, No JVD, No Murmur, No Rub Neurological: Alert, Oriented, CN II-XII Intact, Normal Cognition, Normal Gait, Normal Reflexes, No Motor/Sensory Deficits Psychiatric: Anxious Skin Exam: Warm, Dry, Intact, Normal Color, No Rash #1 Interpretation EKG Date: 12/02/20 Time: 16:13 Rhythm: NSR Rate (Beats/Min): 73 [place]: LAD-Left [place] Deviation P-Wave: Present QRS: Normal ST-T: Normal QT: Normal Course - Vital Signs Last Recorded V/S: Last Vital Signs Temp 98.1 F 12/02/20 15:58 Pulse 94 12/02/20 17:55 Resp 16 12/02/20 17:55 BP 156/91 H 12/02/20 17:55 Pulse Ox 94 L 12/02/20 17:55 - Orders/Labs/Meds Labs: Laboratory Tests 09/28/21 09/28/21 09/28/21 Range/Units 16:48 16:48 16:48 WBC 7.10 (3.98-10.04) K/mm3 RBC 5.12 (3.98-5.22) M/mm3 Hgb 14.3 (11.2-15.7) gm/dl Hct 43.2 (34.1-44.9) % MCV 84.4 D (79.4-94.8) fl MCH 27.9 (25.6-32.2) pg MCHC 33.1 (32.2-35.5) g/dl RDW Std Deviation 43.0 (36.4-46.3) fL Plt Count 203 (182-369) K/mm3 MPV 12.9 H (9.4-12.3) fl Neut % (Auto) 67.3 (34.0-71.1) % Lymph % (Auto) 22.3 (19.3-51.7) % Porter % (Auto) 7.2 (4.7-12.5) % Eos % (Auto) 2.7 (0.7-5.8) Baso % (Auto) 0.4 (0.1-1.2) % Neut # (Auto) 4.78 (1.56-6.13) K/mm3 Lymph # (Auto) 1.58 (1.18-3.74) K/mm3 Porter # (Auto) 0.51 H (0.24-0.36) K/mm3 Eos # (Auto) 0.19 (0.04-0.36) K/mm3 Baso # (Auto) 0.03 (0.01-0.08) K/mm3 D-Dimer, Quantitative 0.24 (0.19-0.50) mg/L Sodium 142 (136-145) mEq/L Potassium 3.6 (3.5-5.1) mEq/L Chloride 107 (98-107) mEq/L Carbon Dioxide 22 (21-32) mEq/L Anion Gap 16.6 H (5-15) BUN 5 L (7-18) mg/dL Creatinine 0.8 (0.55-1.02) mg/dL Est Cr Clr Drug Dosing 71.03 mL/min Estimated GFR (MDRD) > 60 (>60) mL/min BUN/Creatinine Ratio 6.3 L (14-18) Glucose 93 (70-99) mg/dL Calcium 8.8 (8.5-10.1) mg/dL Total Bilirubin 0.8 (0.2-1.0) mg/dL AST 23 (15-37) U/L ALT 26 (14-59) U/L Alkaline Phosphatase 79 (46-116) U/L Troponin I (0.00-0.056) ng/mL C-Reactive Protein 0.8 (<1.0) mg/dL Total Protein 7.3 (6.4-8.2) g/dl Albumin 3.9 (3.4-5.0) g/dl Globulin 3.4 gm/dL Albumin/Globulin Ratio 1.2 (1-2) 12/02/20 Range/Units 16:48 WBC (3.98-10.04) K/mm3 RBC (3.98-5.22) M/mm3 Hgb (11.2-15.7) gm/dl Hct (34.1-44.9) % MCV (79.4-94.8) fl MCH (25.6-32.2) pg MCHC (32.2-35.5) g/dl RDW Std Deviation (36.4-46.3) fL Plt Count (182-369) K/mm3 MPV (9.4-12.3) fl Neut % (Auto) (34.0-71.1) % Lymph % (Auto) (19.3-51.7) % Porter % (Auto) (4.7-12.5) % Eos % (Auto) (0.7-5.8) Baso % (Auto) (0.1-1.2) % Neut # (Auto) (1.56-6.13) K/mm3 Lymph # (Auto) (1.18-3.74) K/mm3 Porter # (Auto) (0.24-0.36) K/mm3 Eos # (Auto) (0.04-0.36) K/mm3 Baso # (Auto) (0.01-0.08) K/mm3 D-Dimer, Quantitative (0.19-0.50) mg/L Sodium (136-145) mEq/L Potassium (3.5-5.1) mEq/L Chloride (98-107) mEq/L Carbon Dioxide (21-32) mEq/L Anion Gap (5-15) BUN (7-18) mg/dL Creatinine (0.55-1.02) mg/dL Est Cr Clr Drug Dosing mL/min Estimated GFR (MDRD) (>60) mL/min BUN/Creatinine Ratio (14-18) Glucose (70-99) mg/dL Calcium (8.5-10.1) mg/dL Total Bilirubin (0.2-1.0) mg/dL AST (15-37) U/L ALT (14-59) U/L Alkaline Phosphatase (46-116) U/L Troponin I < 0.017 (0.00-0.056) ng/mL C-Reactive Protein (<1.0) mg/dL Total Protein (6.4-8.2) g/dl Albumin (3.4-5.0) g/dl Globulin gm/dL Albumin/Globulin Ratio (1-2) Meds: Medications Discontinued Medications Generic Name Dose Route Start Last Admin Trade Name Freq PRN Reason Stop Dose Admin Hydromorphone HCl 1 mg 12/02/20 16:37 12/02/20 16:57 Hydromorphone 1 Mg/Ml Syringe IVPUSH 12/02/20 16:38 1 mg ONETIME ONE Administration Ondansetron HCl 4 mg 12/02/20 16:38 12/02/20 16:59 Ondansetron 4 Mg/2 Ml Sdv IVPUSH 12/02/20 16:39 4 mg ONETIME ONE Administration - Re-Assessments/Exams Free Text/Narrative Re-Assessment/Exam: Patient is a 54-year-old female presenting to the emergency department with complaints of cough, shortness of breath, and right-sided chest pain. She had Covid 1 month ago. Reports cough improved and then got worse. On exam, she has diffuse chest wall tenderness anterior and posteriorly. Her chest pain is likely musculoskeletal in nature, however I will complete cardiac work-up. I ordered blood work, chest x-ray, EKG. I will give her Dilaudid 1 mg IV and Zofran 4 mg IV. 12/02/20 17:43 Patient's work-up is unremarkable. Chest x-ray shows no evidence of pneumonia. Troponin and D-dimer are normal. EKG shows no acute abnormalities. Patient be discharged home with a prescription for Phenergan with codeine cough syrup as well as albuterol inhaler. Recommend follow-up with her primary care provider in 3 days for reevaluation. Discharge instructions as documented. Departure - Departure Time of Disposition: 17:43 Disposition: Home, Self-Care 01 Condition: Good Clinical Impression: Viral respiratory illness - Discharge Information *PRESCRIPTION DRUG MONITORING PROGRAM REVIEWED*: Yes *COPY OF PRESCRIPTION DRUG MONITORING REPORT IN PATIENT RONALD: No Prescriptions: Albuterol Sulfate [Albuterol Sulfate Hfa] 2 puff INH Q4H PRN #1 [id number] PRN Reason: Shortness Of Breath Codeine/Promethazine [Phenergan with Codeine] 5 ml PO Q4HR PRN #100 ml PRN Reason: Cough Instructions: Viral Illness, Adult Referrals: Kori Tom NP [Ordering Only Provider] - Forms: ED Department Discharge Additional Instructions: You were seen in the emergency department today for ongoing cough, shortness of breath, chest discomfort. Work-up included blood work, EKG, and chest x-ray. Results of your work-up to be found to be normal. While in the ER, you received pain and nausea medications. Prescription has been sent for Phenergan with codeine as well as an albuterol inhaler. Use these medications as prescribed. Recommend follow-up with your primary care provider in 3 days for reevaluation. Return to ER for any new or worsening symptoms. Sepsis Event Note (ED) - Evaluation Sepsis Screening Result: No Definite Risk
--- NOTE | 2020-12-02 17:52 | CR ---
Chest: 2 views of the chest were obtained. Comparison: Prior chest x-ray of 10/20/20. Slight area of scarring is noted within the right lung base. Minimal scarring is also seen within the left lung base. Lungs otherwise are clear with no acute parenchymal change. 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 Heart size is normal. Upper mediastinum is normal. Surgical clips are seen from prior cholecystectomy. Bony structures show nothing acute. Impression: 1. Slight scarring within both lung bases. 2. Other chronic findings as described above. 3. Nothing acute is seen on 2 view chest x-ray. Diagnostic code #2
== END 2020-12-02 18:06 | disposition home or self-care (01) ==
LOC: JD.ED 15:46
DX: J98.8 Other specified respiratory disorders (principal); I10 Essential (primary) hypertension; Z72.0 Tobacco use; Z91.013 Allergy to seafood; Z88.6 Allergy status to analgesic agent; Z91.041 Radiographic dye allergy status; Z79.01 Long term (current) use of anticoagulants; Z79.899 Other long term (current) drug therapy
CPT/HCPCS: 36415; 71046; 80053; 84484; 85025; 85379; 86140; 93005; 96374; 96375; 99285; J1170; J2405

== ENCOUNTER 2021-01-27 19:02 | Emergency (ER) | payer BC ==
[2021-01-27] MEDS ORDERED: Haloperidol Lactate 5 MG/ML SDV IVPUSH ONE (19:32)
[2021-01-27] MEDS ORDERED: diphenhydrAMINE 50 MG/ML SDV IVPUSH ONE (19:32)
[2021-01-27] MEDS ORDERED: Lactated Ringers 1,000 ML IV ONE (19:33)
--- NOTE | 2021-01-27 19:39 | EDM.PDOC ---
ED HPI GENERAL MEDICAL PROBLEM - General Chief Complaint: General Stated Complaint: [facility] Time Seen by Provider: 01/27/21 19:33 Source of Information: Reports: Patient History Limitations: Reports: Other - History of Present Illness INITIAL COMMENTS - FREE TEXT/NARRATIVE: Patient is a 55-year-old female presenting to the emergency room with a complaint of headache and vomiting. She states she was recently diagnosed with influenza. History limited secondary to patient's significant nausea and emotional distress. Patient states she also cannot breathe. States she has been sick for 3 weeks. Has not had any medical intervention prior to coming to the ER today. Denies pain anywhere besides her head. Specifically denies chest pain abdominal pain. Denies diarrhea as well. - Related Data Allergies Allergy/AdvReac Type Severity Reaction Status Date / Time aspirin Allergy Intermediate Rash Verified 12/03/20 12:32 Fish Containing Products Allergy Intermediate Rash Verified 12/03/20 12:32 ibuprofen Allergy Intermediate Rash Verified 12/03/20 12:32 Iodinated Contrast Media Allergy Intermediate Rash Verified 12/03/20 12:32 Home Meds: Home Meds Warfarin [Coumadin] 5 mg PO MOWEFR 06/02/19 [History] Warfarin [Coumadin] 7.5 mg PO SUTUTHSA 06/02/19 [History] Omeprazole 20 mg PO DAILY 10/20/20 [History] Ondansetron [Zofran ODT] 4 mg PO Q6H PRN #20 tab.dis 10/20/20 [Rx] dexAMETHasone [Dexamethasone] 6 mg PO DAILY #9 tab 10/20/20 [Rx] Albuterol Sulfate [Albuterol Sulfate Hfa] 2 puff INH Q4H PRN #1 hfa.aer.ad 12/02/20 [Rx] Codeine/Promethazine [Phenergan with Codeine] 5 ml PO Q4HR PRN #100 ml 12/02/20 [Rx] Amoxicillin/Potassium Clav [Augmentin 875-125 Tablet] 1 each PO BID #20 tablet 01/27/21 [Rx] Ondansetron [Zofran ODT] 4 mg PO Q6H PRN #9 tab.dis 01/27/21 [Rx] Past Medical History Cardiovascular History: Reports: High Cholesterol, Hypertension Gastrointestinal History: Reports: Hiatal Hernia [employer] History: Reports: Hematologic History: Reports: Anticoagulation Therapy - Infectious Disease History Infectious Disease History: Reports: Novel Coronavirus - Past Surgical History Cardiovascular Surgical History: Reports: Valve Replacement Other Cardiovascular Surgeries/Procedures: mitral valve GI Surgical History: Reports: Appendectomy, Cholecystectomy, EGD Social & Family History - Caffeine Use Caffeine Use: Reports: Coffee ED ROS GENERAL - Review of Systems Review Of Systems: See Below Free Text/Narrative/Comment: In addition to that documented in the HPI above, the additional ROS was obtained: Constitutional: Denies fevers or chills Eyes: Denies vision changes ENMT: Denies sore throat CV: Denies chest pain Resp: Denies SOB GI: Per HPI : Denies painful urination MSK: Denies recent trauma Skin: Denies new rashes Neuro: Denies new numbness or tingling or weakness Endocrine: Denies unexpected weight loss Heme: On Coumadin ED EXAM, GENERAL - Physical Exam Exam: See Below Free Text/Narrative:: I have reviewed the triage vital signs Const: Patient is extremely anxious and tearful, rocking back and forth in bed with dry heaving. Eyes: Pupils Equal and reactive to light bilaterally, no conjunctival injection HENT: No signs of trauma or swelling, Neck supple without meningismus CV: Regular Rate Rhythm, Warm, well-perfused extremities RESP: Unlabored respiratory effort GI: soft, non-tender, non-distended, no masses MSK: No gross deformities appreciated Skin: Warm, dry. No rashes Neuro: Alert, outbound sales professional II-XII grossly intact. Sensation and motor function of extremities grossly intact. Psych: Extremely anxious and restless mood and affect. Course - Vital Signs Last Recorded V/S: Last Vital Signs Temp 36.1 C 01/27/21 19:16 Pulse 100 01/27/21 19:16 Resp 24 H 01/27/21 19:16 BP 164/110 H 01/27/21 19:16 Pulse Ox 97 01/27/21 19:16 - Orders/Labs/Meds Orders: Active Orders 24 hr Category Date Time Status DRUG SCREEN, URINE [URCHEM] Stat Lab 01/27/21 19:31 Ordered UA W/MICROSCOPIC [URIN] Stat Lab 01/27/21 19:31 Ordered Labs: Laboratory Tests 01/27/21 01/27/21 01/27/21 Range/Units 19:35 19:35 19:35 WBC 8.07 (3.98-10.04) K/mm3 RBC 5.42 H (3.98-5.22) M/mm3 Hgb 15.1 (11.2-15.7) gm/dl Hct 45.6 H (34.1-44.9) % MCV 84.1 (79.4-94.8) fl MCH 27.9 (25.6-32.2) pg MCHC 33.1 (32.2-35.5) g/dl RDW Std Deviation 45.8 (36.4-46.3) fL Plt Count 290 D (182-369) K/mm3 MPV 11.8 (9.4-12.3) fl Neut % (Auto) 60.3 (34.0-71.1) % Lymph % (Auto) 29.2 (19.3-51.7) % Mills % (Auto) 8.8 (4.7-12.5) % Eos % (Auto) 0.5 L (0.7-5.8) Baso % (Auto) 0.7 (0.1-1.2) % Neut # (Auto) 4.86 (1.56-6.13) K/mm3 Lymph # (Auto) 2.36 (1.18-3.74) K/mm3 Mills # (Auto) 0.71 H (0.24-0.36) K/mm3 Eos # (Auto) 0.04 (0.04-0.36) K/mm3 Baso # (Auto) 0.06 (0.01-0.08) K/mm3 Manual Slide Review PT 17.7 H D (9.7-12.0) SECONDS INR 1.62 Sodium 140 (136-145) mEq/L Potassium 3.6 (3.5-5.1) mEq/L Chloride 101 (98-107) mEq/L Carbon Dioxide 26 (21-32) mEq/L Anion Gap 16.6 H (5-15) BUN 11 (7-18) mg/dL Creatinine 0.8 (0.55-1.02) mg/dL Est Cr Clr Drug Dosing TNP Estimated GFR (MDRD) > 60 (>60) mL/min BUN/Creatinine Ratio 13.8 L (14-18) Glucose 137 H (70-99) mg/dL Calcium 9.3 (8.5-10.1) mg/dL Total Bilirubin 0.8 (0.2-1.0) mg/dL AST 29 (15-37) U/L ALT 21 (14-59) U/L Alkaline Phosphatase 82 (46-116) U/L Total Protein 7.1 (6.4-8.2) g/dl Albumin 3.8 (3.4-5.0) g/dl Globulin 3.3 gm/dL Albumin/Globulin Ratio 1.2 (1-2) Lipase 99 (73-393) U/L Ethyl Alcohol 0.00 (0.00) gm% Meds: Medications Discontinued Medications Generic Name Dose Route Start Last Admin Trade Name Freq PRN Reason Stop Dose Admin Amoxicillin/Clavulanate Potassium 1 tab 01/27/21 21:25 Amoxicillin/Clavulanate K 875-125 Mg Tab PO 01/27/21 21:26 ONETIME ONE Diphenhydramine HCl 25 mg 01/27/21 19:32 01/27/21 19:44 Diphenhydramine 50 Mg/Ml Sdv IVPUSH 01/27/21 19:33 25 mg ONETIME ONE Administration Haloperidol Lactate 2.5 mg 01/27/21 19:32 01/27/21 19:44 Haloperidol Lactate 5 Mg/Ml Sdv IVPUSH 01/27/21 19:33 2.5 mg ONETIME ONE Administration Lactated Ringer's 1,000 mls @ 1,000 mls/hr 01/27/21 19:33 01/27/21 19:43 Ringers, Lactated IV 01/27/21 20:32 1,000 mls/hr .BOLUS ONE Administration Lorazepam 0.5 mg 01/27/21 20:09 01/27/21 20:11 Lorazepam 2 Mg/Ml Sdv IVPUSH 01/27/21 20:10 0.5 mg ONETIME ONE Administration Departure - Departure Time of Disposition: 21:26 Disposition: Home, Self-Care 01 Clinical Impression: Sinusitis, acute, Influenza - Discharge Information Prescriptions: Amoxicillin/Potassium Clav [Augmentin 875-125 Tablet] 1 each PO BID #20 tablet Ondansetron [Zofran ODT] 4 mg PO Q6H PRN #9 tab.dis PRN Reason: Nausea Referrals: PCP,None [Primary Care Provider] - Forms: ED Department Discharge Sepsis Event Note (ED) - Evaluation Sepsis Screening Result: No Definite Risk - Focused Exam Vital Signs: Vital Signs Temp Pulse Resp BP Pulse Ox 01/27/21 19:16 36.1 C 100 24 H 164/110 H 97 - My Orders Last 24 Hours: My Active Orders 01/27/21 19:31 DRUG SCREEN, URINE [URCHEM] Stat UA W/MICROSCOPIC [URIN] Stat - Assessment/Plan Last 24 Hours: My Active Orders 01/27/21 19:31 DRUG SCREEN, URINE [URCHEM] Stat UA W/MICROSCOPIC [URIN] Stat Assessment:: Patient is a 55-year-old female presenting with headache, anxiety, nausea, vomiting. Patient extremely anxious and dry heaving while presenting to the emergency room. She was given some Haldol for nausea/vomiting as well as anxiety. Patient was additionally given some Benadryl and Ativan. Patient resting comfortably on reexamination. Broad differential diagnosis considered for this patient include intracranial hemorrhage, bowel obstruction, pneumonia, sepsis, electrolyte abnormality. Laboratory studies were largely unremarkable. CT scan shows no evidence of intracranial hemorrhage. There is evidence of acute sinusitis. At this point, did arrive to the emergency room and will take the patient home. We will start the patient on Augmentin for acute sinusitis. There may be also a component of influenza illness for this patient. I did recommend rest and some Zofran as well for nausea/vomiting. Return precautions discussed as usual. Patient and agree with plan.
[2021-01-27] MEDS ORDERED: LORazepam 2 MG/ML SDV IVPUSH ONE (20:09)
--- NOTE | 2021-01-27 20:27 | CT ---
Head CT Technique: Multiple axial sections through the brain were obtained. Intravenous contrast was not utilized. Reconstructed coronal and sagittal images were obtained. Comparison: No prior head CT study is available. Findings: Ventricles along the basal cisterns and sulci over the convexities are within normal limits for the patient's age. No abnormal parenchymal densities are seen. No evidence of intracranial hemorrhage is seen. No midline shift or mass-effect is seen. Bone window settings were reviewed. There appears to be some fluid within the sphenoid sinus and possibly right maxillary sinus. Mucosal thickening is noted within the ethmoid sinus and within the left frontal sinus. Mastoid sinuses are clear as seen. No acute calvarial abnormality is seen. Impression: 1. Sinus findings which could represent acute sinusitis. Please correlate. 2. Other portions of the noncontrast head CT study appear within normal limits. Diagnostic code #3
--- NOTE | 2021-01-27 20:28 | CR ---
Chest: Frontal view of the chest was obtained. Comparison: Prior chest x-ray of 12/02/20. Heart size and mediastinum appear within normal limits for the patient's age. Sternotomy and prosthetic heart valve are seen. Lungs are clear with no acute parenchymal change. Bony structures show nothing acute. Surgical clips are seen from prior cholecystectomy. Impression: 1. Nothing acute is seen on frontal chest x-ray. Diagnostic code #2
[2021-01-27] MEDS ORDERED: Amoxicillin/Clavulanate K 875-125 MG Tab PO ONE (21:25)
== END 2021-01-27 21:40 | disposition home or self-care (01) ==
LOC: JD.ED 19:02
DX: J01.90 Acute sinusitis, unspecified (principal); J11.1 Influenza due to unidentified influenza virus with other respiratory manifestations; I10 Essential (primary) hypertension; Z79.01 Long term (current) use of anticoagulants; Z79.899 Other long term (current) drug therapy; Z88.6 Allergy status to analgesic agent; Z91.013 Allergy to seafood; Z91.041 Radiographic dye allergy status
CPT/HCPCS: 36415; 70450; 70450-26; 71045; 71045-26; 80053; 80307; 83690; 85025; 85610; 96374; 96375; 99284-25; A9270-GY; J1200; J1630; J2060; J7120